=== PATIENT | female | born 1960 | race Two or more races ===

== ENCOUNTER → 2017-09-09 | Outpatient (CLI) | payer BC | LOC: FIMAGING 07:31 | PROVIDERS: ATTEND Internal Medicine | DX: Z12.31 Encounter for screening mammogram for malignant neoplasm of breast (principal) ==

== ENCOUNTER → 2018-07-24 | Outpatient (CLI) | payer BC | LOC: FIMAGING 09:14 | PROVIDERS: ATTEND Internal Medicine | DX: Z13.820 Encounter for screening for osteoporosis (principal); M81.0 Age-related osteoporosis without current pathological fracture ==